=== PATIENT | male | born 1970 | race African-American/Black ===

== ENCOUNTER 2019-10-27 02:09 | Emergency (ER) | payer MEDICAID ==
--- NOTE | 2019-10-27 02:10 | NUR ---
Pt arrives from [facility] under legal hold. Pt ambulatory and answering questions. Pt is slow to answer questions but responds appropriately. Pt denies SI/HI. Room secured. MD at bedside.
--- NOTE | 2019-10-27 02:20 | NUR ---
Pt refusing vitals. Pt going through his belongings.
[2019-10-27] MEDS ORDERED: KETOROLAC 30 MG/1 ML IM ONE (02:30)
--- NOTE | 2019-10-27 02:38 | NUR ---
BREAK RN: LEGAL HOLD D/C BY [facility]. PT. TO D/C HOME NOW. DENIES ANY SI/HI.
[2019-10-27] MEDS ORDERED: KETOROLAC 60 MG/2 ML ONE (02:44)
--- NOTE | 2019-10-27 02:48 | NUR ---
PT. REPORTS THAT "THE TOLD ME I WAS GOING TO GET A SHOT OF NORCO BEFORE I GO." DISCUSSED WITH PT. THAT MD ORDERED SHOT OF TORODOL. WHEN THIS RN ABOUT TO MEDICATE PT. WITH TORODOL PT. STAES "I THINK I AM GOING TO GO TO [facility] TO GET IT BECAUE I DON'T KNOW WHAT IS REALLY IN THAT SYRINGE." MED WASTED. PT. PROVIDED WITH CAB VOUCHER TO CORRECTION FOR SAFE D/C.
== END 2019-10-27 02:52 | disposition home or self-care (01) ==
LOC: ED 02:46
DX: R56.9 Unspecified convulsions (principal); F17.200 Nicotine dependence, unspecified, uncomplicated; Z76.0 Encounter for issue of repeat prescription; Z72.9 Problem related to lifestyle, unspecified; Z75.9 Unspecified problem related to medical facilities and other health care; Z91.14 Patient's other noncompliance with medication regimen; Z63.8 Other specified problems related to primary support group
CPT/HCPCS: 99283